=== PATIENT | male | born 2000 | race Caucasian/White ===

== ENCOUNTER 2025-04-09 18:20 | Emergency (ER) | payer OTHER, MEDICAID ==
[~2025-04-09] VITALS: Ht 182.9 cm; Wt 72.2 kg
[2025-04-09 20:11] LABS: BASOPHILS 0.7 % (0.2-1.2); EOSINOPHILS 2.0 % (0.8-7.0); LYMPHOCYTES 26.4 % (21.8-53.1); MCH 30.2 PG (25.7-32.2); MCHC 34.6 g/dL (32.3-36.5); MCV 87.1 fL (79.0-92.2); MONOCYTES 8.1 % (5.3-12.2); NEUTROPHILS 62.6 % (34.0-67.9); RBC 5.04 M/uL (4.63-6.08)
[2025-04-09 20:22] LABS: INR 1.08 (0.80-1.30); PROTIME 13.3 Sec (11.2-14.2)
[2025-04-09 20:26] LABS: ALT (SGPT) 11.0 U/L (14-59); AST (SGOT) 15.0 U/L (15-37); GLOMERULAR FILTRATION RATE,EST 121.0 mL/min (>60); PROTEIN, TOTAL 7.3 g/dL (6.4-8.2); UREA NITROGEN 11.0 mg/dL (7-18)
[2025-04-09 20:44] LABS: AMPHETAMINES, URINE POSITIVE (NEGATIVE); BARBITURATES, URINE NEGATIVE (NEGATIVE); BENZODIAZEPINE, URINE NEGATIVE (NEGATIVE); CANNABINOID, URINE NEGATIVE (NEGATIVE); COCAINE, URINE NEGATIVE (NEGATIVE); ECSTASY, URINE NEGATIVE (NEGATIVE); FENTANYL, URINE NEGATIVE (NEGATIVE); METHADONE, URINE NEGATIVE (NEGATIVE); OPIATES, URINE NEGATIVE (NEGATIVE); OXYCODONE, URINE NEGATIVE (NEGATIVE); PHENCYCLIDINE, URINE NEGATIVE (NEGATIVE)
[2025-04-09 21:51] VITALS: BP 119/84
--- NOTE | 2025-04-10 15:40 | EKG ---
[facility] [address] [place] [address] Signed Normal sinus rhythm Rightward axis Borderline ECG No previous ECGs available Confirmed by Mary Kendall MD () on 04/10/2025 3:40:02 PM Electronically Signed By: MARY KENDALL MD 04/10/25 1540 PATIENT NAME: TRACEY WILHELM Electrocardiogram DATE OF : [birth year] PHYSICIAN: MARY KENDALL MD REPORT #: [id number] REPORT IS CONFIDENTIAL AND NOT TO BE RELEASED WITHOUT AUTHORIZATION
== END 2025-04-09 21:52 | disposition home or self-care (01) ==
LOC: ED 18:20
PROVIDERS: Emergency Medicine
DX: T75.4XXA Electrocution, initial encounter (principal); R20.2 Paresthesia of skin; W86.8XXA Exposure to other electric current, initial encounter; Z88.0 Allergy status to penicillin
CPT/HCPCS: 36415; 70450; 70496; 70498; 80053; 80307; 85025; 85610; 85730; 93005; 93010; 99284-25; Q9967